=== PATIENT | female | born 1965 | race American Indian/Alaskan Native ===

== ENCOUNTER 2016-10-12 12:03 | Inpatient (IN) | payer OTHER ==
[2016-10-12 13:13] LABS: Basophils % (Auto) 0.3 % (0.0-1.8); Eosinophils % (Auto) 4.6 % (0.0-4.3); Hematocrit 41.9 % (30.3-42.9); Hemoglobin 13.6 gm/dl (10.1-14.3); Mean Corpuscular HGB Conc 33 % (30-34); Mean Corpuscular Hemoglobin 30 pg (28-32); Mean Corpuscular Volume 93 fl (79-97); Platelet Count 213 K/mm3 (140-440); Red Blood Count 4.49 M/mm3 (3.65-5.03); Red Cell Distribution Width 13.7 % (13.2-15.2); White Blood Count 7.9 K/mm3 (4.5-11.0)
[2016-10-12 13:44] LABS: Anion Gap 18 mmol/L; BUN/Creatinine Ratio 11.42; Blood Urea Nitrogen 8 mg/dL (7-17); Calcium 9.2 mg/dL (8.4-10.2); Carbon Dioxide 26 mmol/L (22-30); Chloride 101.8 mmol/L (98-107); Glucose 98 mg/dL (65-100); Lipase 31 units/L (13-60); Sodium 142 mmol/L (137-145)
[2016-10-12 13:45] LABS: Bilirubin,Urine NEG (Negative); Blood,Urine LG (Negative); Ketones,Urine NEG (Negative); Leukocyte Esterase,Urine TR (Negative); Nitrite,Urine NEG (Negative); Protein,Urine <15 mg/dL mg/dL (Negative); Urobilinogen,Urine < 2.0 mg/dL (<2.0)
[2016-10-12 14:54] LABS: Mucus,Urine FEW /HPF
[2016-10-12] MEDS ORDERED: MORPHINE IV ONE (22:28)
[2016-10-12] MEDS ORDERED: ASPIRIN PO ONE (22:28)
[2016-10-12] MEDS ORDERED: ZOFRAN IV ONE (22:28)
[2016-10-12] MEDS ORDERED: NITRO-BID 2% TP ONE (22:28)
[2016-10-12] MEDS ORDERED: PEPCID IV ONE (22:30)
[2016-10-12] MEDS ORDERED: MORPHINE ONE (22:33)
--- NOTE | 2016-10-12 22:35 | Emergency Department Report ---
HPI - General Chief Complaint: Abdominal Pain Time Seen by Provider: 10/12/16 22:18 - HPI HPI: Room 5 The patient is a 51-year-old female presenting with a chief complaint of chest pain. The patient states for 1 week she has had intermittent substernal chest pain that has been "crushing" in nature. Patient states she feels though she cannot "digest food." The patient states drinking liquids sometimes makes the chest pain worse. Patient does admit to shortness of breath, nausea and diaphoresis with her chest pain. The patient states her chest pain has returned and is currently a 5/10. Patient states she's never had a stress test or cardiac catheterization. Patient has also noticed a rash to her face left ear and left upper extremity over the past 3 days. The patient states the rash is pruritic. The patient states her only new exposure was a facial wash she used 2 weeks ago Location: [see above] Duration: Intermittent times one week Quality: "Crushing" Severity: 5/10 Modifying factors: [see above] Context: [see above] Mode of transportation: [not driving] ED Past Medical Hx - Past Medical History Previous Medical History?: No - Surgical History Past Surgical History?: No Additional Surgical History: , finger amputation, D&C - Family History Family history: no significant - Social History Smoking Status: Current Every Day Smoker (1 pack per day) Substance Use Type: Alcohol (occasional) - Medications Home Medications: Home Medications Medication Instructions Recorded Confirmed Last Taken Type No Known Home Medications [No 10/12/16 10/12/16 Unknown History Reported Home Medications] ED Review of Systems ROS: Stated complaint: CHEST PAIN/RASHEED/SOB/RASH/ Other details as noted in HPI Comment: All other systems reviewed and negative Constitutional: diaphoresis Eyes: denies: eye pain, eye discharge, vision change ENT: denies: ear pain, throat pain Respiratory: shortness of breath Cardiovascular: chest pain Endocrine: no symptoms reported Gastrointestinal: nausea. denies: vomiting Genitourinary: denies: urgency, dysuria, discharge Musculoskeletal: denies: back pain, joint swelling, arthralgia Skin: rash Neurological: denies: headache, weakness, paresthesias Psychiatric: denies: anxiety, depression Hematological/Lymphatic: denies: easy bleeding, easy bruising Physical Exam - Physical Exam Vital Signs: Vital Signs 10/12/16 10/12/16 12:30 20:24 Temperature 98.3 F 98.6 F Pulse Rate 73 18 L Respiratory 18 16 Rate Blood Pressure 105/77 Blood Pressure 130/81 [Left] O2 Sat by Pulse 100 100 Oximetry Physical Exam: GENERAL: The patient is well-developed well-nourished female lying on stretcher not appearing to be in acute distress. [] HEENT: Normocephalic. Atraumatic. Extraocular motions are intact. Patient has moist mucous membranes. Mild erythema encompassing bridge of nose and cheek not necessarily a definitive malar rash but erythematous NECK: Supple. Trachea midline CHEST/LUNGS: Clear to auscultation. There is no respiratory distress noted. HEART/CARDIOVASCULAR: Regular. There is no tachycardia. There is no gallop rub or murmur. ABDOMEN: Abdomen is soft, nontender. Patient has normal bowel sounds. There is no abdominal distention. SKIN: There is erythematous rash of the face encompassing the bridge of the nose and the maxillary regions. She has mild erythema of the left ear. There is a small (2 cm) region of erythema to the left upper extremity. There is no edema. There is no diaphoresis. NEURO: The patient is awake, alert, and oriented. The patient is cooperative. The patient has normal speech MUSCULOSKELETAL: There is no evidence of acute injury. ED Course Vital Signs 10/12/16 10/12/16 12:30 20:24 Temperature 98.3 F 98.6 F Pulse Rate 73 18 L Respiratory 18 16 Rate Blood Pressure 105/77 Blood Pressure 130/81 [Left] O2 Sat by Pulse 100 100 Oximetry ED Medical Decision Making - Lab Data Result diagrams: 10/12/16 12:43 10/12/16 12:43 Laboratory Tests 10/12/16 10/12/16 10/12/16 12:43 12:43 13:00 WBC 7.9 RBC 4.49 Hgb 13.6 Hct 41.9 MCV 93 MCH 30 MCHC 33 RDW 13.7 Plt Count 213 Lymph % (Auto) 33.2 [place] % (Auto) 7.6 H Eos % (Auto) 4.6 H Baso % (Auto) 0.3 Lymph # 2.6 [place] # 0.6 Eos # 0.4 Baso # 0.0 Seg Neutrophils % 54.3 Seg Neutrophils # 4.3 Sodium 142 Potassium 4.0 Chloride 101.8 Carbon Dioxide 26 Anion Gap 18 BUN 8 Creatinine 0.7 Estimated GFR > 60 BUN/Creatinine Ratio 11.42 Glucose 98 Calcium 9.2 Troponin T < 0.010 Lipase 31 Urine Color Yellow Urine Turbidity Clear Urine pH 6.0 Ur Specific [place] 1.015 Urine Protein <15 mg/dl Urine Glucose (UA) Neg Urine Ketones Neg Urine Blood Lg Urine Nitrite Neg Urine Bilirubin Neg Urine Urobilinogen < 2.0 Ur Leukocyte Esterase Tr Urine WBC (Auto) 1.0 Urine RBC (Auto) 94.0 U Epithel Cells (Auto) 2.0 Urine Mucus Few Urine Yeast (Budding) Few 10/12/16 10/12/16 15:27 19:15 WBC RBC Hgb Hct MCV MCH MCHC RDW Plt Count Lymph % (Auto) [place] % (Auto) Eos % (Auto) Baso % (Auto) Lymph # [place] # Eos # Baso # Seg Neutrophils % Seg Neutrophils # Sodium Potassium Chloride Carbon Dioxide Anion Gap BUN Creatinine Estimated GFR BUN/Creatinine Ratio Glucose Calcium Troponin T < 0.010 < 0.010 Lipase Urine Color Urine Turbidity Urine pH Ur Specific [place] Urine Protein Urine Glucose (UA) Urine Ketones Urine Blood Urine Nitrite Urine Bilirubin Urine Urobilinogen Ur Leukocyte Esterase Urine WBC (Auto) Urine RBC (Auto) U Epithel Cells (Auto) Urine Mucus Urine Yeast (Budding) - EKG Data -: EKG Interpreted by Me EKG shows normal: sinus rhythm Rate: normal - EKG Data When compared to previous EKG there are: previous EKG unavailable Interpretation: other (no ischemic changes seen) - Radiology Data Radiology results: image reviewed (chest x-ray) interpreted by me: Chest x-ray-no focal infiltrates, no pneumothorax - Differential Diagnosis ACS, lupus, pericarditis, GERD, esophageal spasm Critical care attestation.: If time is entered above; I have spent that time in minutes in the direct care of this critically ill patient, excluding procedure time. ED Disposition Clinical Impression: Chest pain, Facial rash Disposition: OP ADMITTED IP TO THIS HOSP Is pt being admited?: Yes Does the pt Need Aspirin: Yes Condition: Fair Instructions: Chest Pain (ED), Abdominal Pain (ED) Referrals: PRIMARY CARE,MD [Primary Care Provider] - 3-5 Days Time of Disposition: 22:39 (hospitalist paged)
[2016-10-12] MEDS ORDERED: MORPHINE IV PRN (23:40)
[2016-10-12] MEDS ORDERED: SODIUM CHLORIDE FLUSH SYRINGE 10 ML IV PRN (23:40)
[2016-10-12] MEDS ORDERED: TYLENOL PO PRN (23:40)
[2016-10-12] MEDS ORDERED: MILK OF MAGNESIA PO PRN (23:40)
[2016-10-12] MEDS ORDERED: ZOFRAN IV PRN (23:40)
[2016-10-12] MEDS ORDERED: DULCOLAX PR PRN (23:40)
--- NOTE | 2016-10-12 23:44 | History and Physical Report ---
History of Present Illness History of present illness: SEE PREVIUS H&P DICTATION Medications and Allergies Allergies Allergy/AdvReac Type Severity Reaction Status Date / Time No Known Allergies Allergy Verified 10/12/16 22:39 Home Medications Medication Instructions Recorded Confirmed Last Taken Type Famotidine [Pepcid] 20 mg PO BID #60 tablet 10/13/16 Unknown Rx Exam - Constitutional Vitals: Temp Pulse Resp BP Pulse Ox 98.6 F 66 15 111/62 98 10/12/16 20:24 10/12/16 22:51 10/12/16 22:20 10/12/16 22:51 10/12/16 22:20 Results - Labs CBC & Chem 7: 10/13/16 07:10 10/13/16 04:00 Labs: Abnormal lab results 10/12/16 Range/Units 12:43 [place] % (Auto) 7.6 H (0.0-7.3) % Eos % (Auto) 4.6 H (0.0-4.3) %
--- NOTE | 2016-10-13 00:47 | Admit Criteria Form ---
Admission Criteria Documentation: CARDIOLOGY GRG Clinical Indications for Admission to Inpatient Care ( Place 'X' for any and all applicable criteria): Hospital admission is needed for appropriate care of the patient because of ANY ONE of the following (1): [ ] I. Hemodynamic instability as indicated by ALL of the following (1)(2)(3) (4)(5) [ ]a) Vital signs or other findings not as expected for chronic patient condition or baseline [ ]b) Instability indicated by ANY ONE of the following: [ ]i) Hypotension [ ]ii) Symptomatic Tachycardia unresponsive to treatment ( e.g., analgesia, fluids, sedation as indicated) [ ]iii) Inadequate perfusion indicated by ANY ONE of the following: [ ] 1) Lactic acidosis (> 2 mmol/L) [ ] 2) New abnormal capillary refill (> 3 seconds) [ ] 3) Reduced urine output [ ] 4) New altered mental status [ ]iv) Orthostatic vital sign changes unresponsive to treatment (e.g., fluids) [ ]v) IV inotropic or vasopressor medication required to maintain adequate blood pressure or perfusion [ ] II. Severe heart failure as indicated by ANY ONE of the following(17)(18) [ ]a) Respiratory distress [ ]b) Hypotension [ ]c) Anasarca (refractory to outpatient therapy) [ ]d) Cardiac arrhythmias of immediate concern [ ]e) Myocardial ischemia [ ] III. Cardiac arrhythmias or findings of immediate concern indicated by ANY ONE of the following (19)(20): [ ] a) Heart rhythms that are inherently dangerous or unstable indicated by ANY ONE of the following (21)(22)(23): [ ] i) Resuscitated ventricular fibrillation or cardiac arrest [ ] ii) Ventricular escape rhythm [ ] iii) Sustained ventricular tachycardia (30 seconds or more of ventricular rhythm at greater than 100 beats per minute) [ ] iv) Nonsustained ventricular tachycardia and ANY ONE of the following: [ ] 1) Suspected cardiac ischemia as cause or consequence of ventricular tachycardia [ ] 2) In setting of acute myocarditis [ ] b) Unstable cardiac conduction defects indicated by ANY ONE of the following(23)(24)(25) [ ] i) Type II second-degree atrioventricular block [ ]ii) Third-degree atrioventricular block [ ]iii) New-onset left bundle branch block with suspected myocardial ischemia [ ]c) Any heart rhythm and ANY ONE of the following (21)(22)(26)(27) (28) [ ] i) Continuous long-term ECG monitoring needed (e.g., initiation of drug requiring monitoring for more than 24 hours) [ ] ii) Patient has automatic implanted cardioverter defibrillator that is repeatedly firing, malfunctioning, or in need of immediate adjustment of settings beyond the scope of ambulatory or observation care [ ]d) Heart rhythms of concern due to ANY ONE of the following: [ ] i) Hypotension [ ] ii) Respiratory distress [ ] iii) Association with other significant symptoms (e.g., bradycardia with syncope or ongoing dizziness, supraventricular tachycardia with chest pain (14)(15)(17) [ ] IV. Monitoring for cardiac contusion beyond the scope of observation care needed [A](30)(31)(32) [ ] V. Surgical or device complication (e.g., valve replacement complication , pacemaker dysfunction) (35)(41)(44)(45)(46) [ ] . Inpatient palliative care needed. [B](49) Also use Inpatient Palliative Care Criteria [ ] VII. Nonbacterial thrombotic (marantic) endocarditis (36)(43)(47)(48) [X] VIII. Cardiology condition, symptom, or finding for which emergency and observation care has failed or are not considered appropriate. [ ] IX. Acute valvular disease requiring inpatient as indicated by ANY ONE of the following (41) [ ]a) Acute valvular regurgitation (42) [ ]b) Noninfectious valvulitis (43) [ ]c) Obstructive valve thrombosis [ ]d) Paravalvular leak [ ]e) Other significant valvular disorder remaining after emergency or observation level of care (as appropriate) [ ]X. Pericardial disease requiring inpatient treatment as indicated by ANY ONE of the following (33)(34)(35)(36)(37) [ ]a) Suspected tamponade (38)(39)(40) [ ]b) Hemopericardium [ ]c) Other significant pericardial disorder remaining after emergency or observation level of care (as appropriate) [ ] XI. Cardiac ischemia beyond scope of emergency and observation care. [ ] XII. Hypertension requiring inpatient treatment as indicated by ANY ONE of the following (6)(7)(8) [ ]a) SBP greater than 220 mm Hg or DBP greater than 120 mmHg despite treatment [ ]b) SBP greater than 140 mm Hg or DBP greater than 100 mm Hg with evidence of acute end organ damage as indicated by ANY ONE of the following [ ] i) Altered mental status [ ] ii) Acute renal failure as indicated by new onset of ANY ONE of the following (9)(10)(11)(12)(13) [ ]1) 3-fold rise in serum creatinine from baseline [ ]2) Serum creatinine greater than 4 mg/dL ( 354 micromoles/L) with acute rise greater than 0.5 mg/dL (44.2 micromoles/L) [ ]3) Reduction of more than 75% in estimated glomerular filtration rate from baseline [ ]4) Estimated glomerular filtration rate less than 35 mL/min/1.73m2 (0.59 mL/sec/1.73m2) in child up to 18 years of age [ ]5) Cessation of urine output indicated by ALL of the following [ ]A. Adequate volume status [ ]B. Inadequate urine output as indicated by ANY ONE of the following [ ]a. Urine output less than 0.3 mL/kg/hr for 24 hours [ ]b. Anuria (urine output less than 0.1 mL/kg/hr) for 12 hours [ ] iii) Aortic dissection [ ] iv) Myocardial Ischemia [ ] v) Left ventricular heart failure [ ]vi) Retinal Hemorrhage [ ]vii) Other significant finding [ ]c) Hypertension in child requiring inpatient treatment as indicated by ALL of the following(14)(15)(16) [ ] i) Outpatient treatment not effective, not available, or not appropriate [ ]ii) SBP or DBP greater than 95th percentile for age [ ]iii) Evidence of acute end organ damage as indicated by ANY ONE of the following [ ]1) Altered mental status [ ]2) Acute renal failure as indicated by new onset of ANY ONE of the following(9)(10)(11)(12)(13) [ ]A. 3-fold rise in serum creatinine from baseline [ ]B. Serum creatinine greater than 4 mg/dL (354 micromoles/L) with acute rise greater than 0.5 mg/dL (44.2 micromoles/L) [ ]C. Reduction of more than 75% in estimated glomerular filtration rate from baseline [ ]D. Estimated glomerular filtration rate less than 35 mL/min/1.73m2 (0.59 mL/sec/1.73m2) in child up to 18 years of age [ ]E. Cessation of urine output indicated by ALL of the following [ ]a. Adequate volume status [ ]b. Inadequate urine output as indicated by ANY ONE of the following [ ]i) Urine output less than 0.3 mL/kg/hr for 24 hours [ ]ii) Anuria ( urine output less than 0.1 mL/kg/hr) for 12 hours [ ]3) Severe headache [ ]4) Visual disturbance [ ]5) Retinal hemorrhage [ ]6) Other significant finding [ ]XIII. Complications of transplanted heart indicated by ANY ONE of the following(61): [ ]a) Acute graft rejection requiring inpatient management (eg, intravenous immunosuppression)(62)(63) [ ]b) Acute graft heart failure indicated by ANY ONE of the following(64): [ ]i) Hemodynamic instability [ ]ii) Cardiac arrhythmias of immediate concern [ ]iii) Pulmonary edema that is very severe (eg, mechanical ventilation needed, imminent or likely, need for 100% oxygen to keep oxygen saturation above 90%) [ ]iv) Pulmonary edema that is persistent as indicated by ALL of the following: [ ]1) New need for oxygen therapy to keep oxygen saturation above 90% (or increased FiO2 need from baseline) [ ]2) Has not improved sufficiently with emergency department or observation care IV diuretics or other heart failure treatments[E] [ ]v) Altered mental status that is severe or persistent [ ]vi) Increased creatinine (new on laboratory test) with reduction of more than 50% in estimated glomerular filtration rate from baseline [ ]vii) Progressively (ongoing) rising creatinine (known from past laboratory test) with reduction of more than 25% in estimated glomerular filtration rate from baseline [ ]viii) Acute renal failure [ ]ix) Acute peripheral ischemia (eg, examination shows pulseless, cool, mottled, or cyanotic extremity) [ ]x) Pulmonary artery catheter monitoring needed [ ]xi) Other sign or symptom of heart failure requiring inpatient treatment (ie, too severe or not responsive to outpatient and observation care treatment) [ ]c) Infection requiring inpatient management (eg, Hemodynamic instability, need for intravenous antimicrobial treatment)(66)(67)(68)(69)(70) [ ]d) Cardiac allograft vasculopathy requiring inpatient management ( eg evidence of cardiac ischemia)(71) [ ]e) Other complication of transplanted heart (eg, stroke, severe pulmonary hypertension, severe valvular dysfunction) requiring inpatient management(72) The original [facility] content created by [facility] has been revised. The portions of the content which have been revised are identified through the use of italic text or in bold, and [facility] has neither reviewed nor approved the modified material. All other unmodified content is copyright [facility]. Please see references footnoted in the original [facility] edition 2016 Admission Criteria Met: Yes
[2016-10-13 07:55] LABS: Creatine Kinase MB 2.4 ng/mL (0.0-4.0)
[2016-10-13 07:58] LABS: Anion Gap 16 mmol/L; Blood Urea Nitrogen 8 mg/dL (7-17); Carbon Dioxide 27 mmol/L (22-30); Chloride 102.7 mmol/L (98-107); Potassium 4.3 mmol/L (3.6-5.0); Sodium 141 mmol/L (137-145)
[2016-10-13 07:59] LABS: Calcium 8.9 mg/dL (8.4-10.2); Glucose 83 mg/dL (65-100)
--- NOTE | 2016-10-13 09:28 | Discharge Summary ---
Providers - Providers Date of Admission: 10/12/16 23:40 Date of discharge: 10/14/16 Attending physician: ISSAC FLORENCE MD 10/13/16 09:22 Consult to Physician [CONS] Routine Reason For Exam: Odynophagia Consulting Provider: PRITESH MOE Primary care physician: P[employer]EARCH PSYCHOLOGIST Hospitalization Condition: Fair Disposition: STILL A PATIENT Exam - Constitutional Vitals: Temp Pulse Resp BP Pulse Ox 97.4 F L 78 18 113/67 100 10/13/16 08:45 10/13/16 08:45 10/13/16 08:45 10/13/16 08:45 10/13/16 08:45 Plan Activity: advance as tolerated, fall precautions Diet: low fat Special Instructions: smoking cessation, other (must quit etoh) Follow up with: PRIMARY CARE, [Primary Care Provider] - 3-5 Days PRITESH MOE MD [Staff Physician] - 7 Days Prescriptions: Famotidine [Pepcid] 20 mg PO BID #60 tablet
--- NOTE | 2016-10-13 10:00 | History and Physical Report ---
CHIEF COMPLAINT: Chest pain. HISTORY OF PRESENT ILLNESS: This is a 51-year-old woman with no medical problems, comes to the Emergency Room with complaints of chest pain located in the epigastric area x 1 week. She describes it as a squeezing pain, intermittent in nature, lasting for 4 minutes, intensity 7/10, no radiation, and she cannot identify relieving factors. She states that eating and drinking makes her symptoms worse. She admits to nausea, shortness of breath, diaphoresis. No palpitations. REVIEW OF SYSTEMS: No fever or chills. No headache, no blurred vision. No cough. No abdominal pain. No hematochezia. No dysuria or frequency. No pruritus. No anxiety, depression. No focal weakness, paresthesia. Other review of system is negative. PAST SURGICAL HISTORY: , amputation of finger. SOCIAL HISTORY: Smokes a pack a day, admits to drinking 3 bottles of wine a week plus 6 pack of beer a week, no drug use. PHYSICAL EXAMINATION: VITAL SIGNS: Reviewed. HEENT: Normocephalic, atraumatic. Pupils equal, round, reactive to light. Extraocular movements intact. No scleral icterus. Mucous membranes moist, no exudate or erythema. NECK: No JVD. Neck is supple. No carotid bruit. No thyromegaly or nodule. HEART: S1, S2, regular rate and rhythm. CHEST: Lungs clear to auscultation bilateral. Breathing comfortable. ABDOMEN: Positive bowel sounds, nontender, nondistended, no organomegaly. EXTREMITIES: No edema, cyanosis or clubbing. SKIN: No rash. Warm and dry. NEUROLOGICAL: Alert and oriented x 3. Cranial nerves 2-12 intact. Speech is fluent. LABORATORY DATA: As follows: labs, EKG was reviewed. Chest x-ray is normal. ASSESSMENT AND PLAN: 1. Chest pain, rule out acute coronary syndrome. 2. Admit to Medicine. 3. Check cardiac enzymes, lipid profile and obtain a stress test. 4. Start aspirin, IV morphine. 5. Deep venous thrombosis prophylaxis. JOB# [id number] AES/NTS MTDD
--- NOTE | 2016-10-13 10:00 | XRay Report ---
CHEST ONE VIEW INDICATION: Chest pain. COMPARISON: None similar at this institution. FINDINGS: Portable, single, frontal chest radiograph demonstrates normal cardiomediastinal silhouette. Clear lungs. Unremarkable bones. Extrinsic EKG leads. CONCLUSION: No acute disease in the chest. Thank you for the opportunity to participate in this patient's care.
[2016-10-13 10:29] LABS: Basophils % (Auto) 0.2 % (0.0-1.8); Eosinophils % (Auto) 4.1 % (0.0-4.3); Hematocrit 41.2 % (30.3-42.9); Hemoglobin 13.4 gm/dl (10.1-14.3); Mean Corpuscular HGB Conc 33 % (30-34); Mean Corpuscular Hemoglobin 30 pg (28-32); Mean Corpuscular Volume 93 fl (79-97); Platelet Count 200 K/mm3 (140-440); Red Blood Count 4.43 M/mm3 (3.65-5.03); Red Cell Distribution Width 13.7 % (13.2-15.2); White Blood Count 7.1 K/mm3 (4.5-11.0)
[2016-10-13] MEDS: BABY ASPIRIN PO SCH (11:21)
[2016-10-13] MEDS ORDERED: CARAFATE PO SCH (11:30)
--- NOTE | 2016-10-13 11:33 | Gastroenterology Consultation ---
Addendum entered and electronically signed by SUMIT GERMAIN NP 10/13/16 13:33: Will add colonoscopy for tomorrow as well, NPO after MN, clear liquid diet, Prep this PM Original Note: <SUMIT GERMAIN - Last Filed: 10/13/16 11:31> History of Present Illness - Reason for Consult Consult date: 10/13/16 odynophagia Requesting physician: ISSAC FLORENCE - History of Present Illness Ms. Reddy is a 51 y/o female admitted with CP. She states her pain is typically after she eats. She feels as thought food and fluid gets dislodged in her chest and is painful. She has the sensation of choking. This started ~ 1 week ago. No prior GI workup. She reports a 20 lb weight loss over the last 3 months. No abdominal pain. She has noted blood in her stool over the past month. NO family hx of GI disease or cancer. She is S/P stress test with results pending. No fever or chills. BMs are not regular. Past History Past Medical History: No medical history Past Surgical History: , Other (finger amputation) Social history: no significant social history, smoking. denies: alcohol abuse Medications and Allergies Allergies Allergy/AdvReac Type Severity Reaction Status Date / Time No Known Allergies Allergy Verified 10/12/16 22:39 Home Medications Medication Instructions Recorded Confirmed Last Taken Type Famotidine [Pepcid] 20 mg PO BID #60 tablet 10/13/16 Unknown Rx Active Meds: Active Medications Acetaminophen (Tylenol) 650 mg PO Q4H PRN PRN Reason: Pain MILD(1-3)/Fever >100.5/GREGORIO Aspirin (Baby Aspirin) 81 mg PO QDAY [facility] Last Admin: 10/13/16 11:21 Dose: Not Given Bisacodyl (Dulcolax) 10 mg [place] QDAY PRN PRN Reason: Constipation unrelieved by MOM Magnesium Hydroxide (Milk Of Magnesia) 30 ml PO Q4H PRN PRN Reason: Constipation Morphine Sulfate (Morphine) 2 mg IV Q4H PRN PRN Reason: Pain, Moderate (4-6) Ondansetron HCl (Zofran) 4 mg IV Q8H PRN PRN Reason: N/V unrelieved by Reglan Pantoprazole Sodium (Protonix) 20 mg PO QDAY OJ Sodium Chloride (Sodium Chloride Flush Syringe 10 Ml) 10 ml IV PRN PRN PRN Reason: LINE FLUSH Sucralfate (Carafate) 1 gm PO ACHS OJ Review of Systems - Review of Systems All systems: negative Constitutional: weight gain, weakness Gastrointestinal: hematochezia, indigestion Exam - Constitutional Vital Signs: Temp Pulse Resp BP Pulse Ox 97.4 F L 78 18 113/67 100 10/13/16 08:45 10/13/16 08:45 10/13/16 08:45 10/13/16 08:45 10/13/16 08:45 General appearance: no acute distress - EENT Eyes: EOM intact ENT: hearing intact - Neck Neck: supple - Respiratory Respiratory: bilateral: CTA - Cardiovascular Rhythm: regular Heart Sounds: Present: S1 & S2 Extremities: Full ROM - Gastrointestinal General gastrointestinal: Present: soft, non-tender, non-distended, normal bowel sounds - Integumentary Integumentary: Present: warm, dry - Neurologic Neurological: alert and oriented x3 - Psychiatric Psychiatric: appropriate mood/affect, cooperative - Labs CBC & Chem 7: 10/13/16 07:10 10/13/16 04:00 Lab Results: Laboratory Results - last 24 hr 10/13/16 10/13/16 10/13/16 00:25 04:00 06:40 WBC RBC Hgb Hct MCV MCH MCHC RDW Plt Count Lymph % (Auto) [place] % (Auto) Eos % (Auto) Baso % (Auto) Lymph # [place] # Eos # Baso # Seg Neutrophils % Seg Neutrophils # Sodium 141 Potassium 4.3 Chloride 102.7 Carbon Dioxide 27 Anion Gap 16 BUN 8 Creatinine 0.8 Estimated GFR > 60 BUN/Creatinine Ratio 10.00 Glucose 83 Calcium 8.9 Total Creatine Kinase 144 H CK-MB (CK-2) 2.4 CK-MB (CK-2) Rel Index 1.6 Triglycerides 70 Cholesterol 152 LDL Cholesterol Direct 87 HDL Cholesterol 51 Cholesterol/HDL Ratio 2.98 10/13/16 07:10 WBC 7.1 RBC 4.43 Hgb 13.4 Hct 41.2 MCV 93 MCH 30 MCHC 33 RDW 13.7 Plt Count 200 Lymph % (Auto) 46.2 H [place] % (Auto) 7.5 H Eos % (Auto) 4.1 Baso % (Auto) 0.2 Lymph # 3.3 [place] # 0.5 Eos # 0.3 Baso # 0.0 Seg Neutrophils % 42.0 Seg Neutrophils # 3.0 Sodium Potassium Chloride Carbon Dioxide Anion Gap BUN Creatinine Estimated GFR BUN/Creatinine Ratio Glucose Calcium Total Creatine Kinase CK-MB (CK-2) CK-MB (CK-2) Rel Index Triglycerides Cholesterol LDL Cholesterol Direct HDL Cholesterol Cholesterol/HDL Ratio Assessment and Plan 1. Odynophagia 2 .Dysphagia -Patient will need EGD. She has had crackers and water recently, therefore can not be done today. Will plan for EGD tomorrow if stress test normal ( Troponins are negative) NPO after MN. No blood thinning meds. -Check coags 2. Hematochezia -in the setting of weight loss, concerning ( dysphagia vs other) may need colonoscopy. H/H WNL. Check FOBT. Can pursue colonoscopy as outpatient if needed. -Will follow. <ALEXANDRE GONZALEZ - Last Filed: 10/13/16 14:43> Medications and Allergies Active Meds: Active Medications Acetaminophen (Tylenol) 650 mg PO Q4H PRN PRN Reason: Pain MILD(1-3)/Fever >100.5/GREGORIO Aspirin (Baby Aspirin) 81 mg PO QDAY [facility] Last Admin: 10/13/16 11:21 Dose: Not Given Bisacodyl (Dulcolax) 10 mg [place] QDAY PRN PRN Reason: Constipation unrelieved by MOM Magnesium Hydroxide (Milk Of Magnesia) 30 ml PO Q4H PRN PRN Reason: Constipation Morphine Sulfate (Morphine) 2 mg IV Q4H PRN PRN Reason: Pain, Moderate (4-6) Ondansetron HCl (Zofran) 4 mg IV Q8H PRN PRN Reason: N/V unrelieved by Reglan Pantoprazole Sodium (Protonix) 20 mg PO QDAY [facility] Last Admin: 10/13/16 11:47 Dose: 20 mg Polyethylene Glycol/Electrolytes (Golytely) 4,000 ml PO ONCE ONE Stop: 10/13/16 17:01 Sodium Chloride (Sodium Chloride Flush Syringe 10 Ml) 10 ml IV PRN PRN PRN Reason: LINE FLUSH Sucralfate (Carafate) 1 gm PO [facility] Last Admin: 10/13/16 11:47 Dose: 1 gm Exam - Constitutional Vital Signs: Temp Pulse Resp BP Pulse Ox 98.1 F 58 L 18 126/64 95 10/13/16 13:04 10/13/16 13:04 10/13/16 13:04 10/13/16 13:04 10/13/16 13:59 - Labs CBC & Chem 7: 10/13/16 07:10 10/13/16 04:00 Lab Results: Laboratory Results - last 24 hr 10/13/16 10/13/16 10/13/16 00:25 04:00 06:40 WBC RBC Hgb Hct MCV MCH MCHC RDW Plt Count Lymph % (Auto) [place] % (Auto) Eos % (Auto) Baso % (Auto) Lymph # [place] # Eos # Baso # Seg Neutrophils % Seg Neutrophils # Sodium 141 Potassium 4.3 Chloride 102.7 Carbon Dioxide 27 Anion Gap 16 BUN 8 Creatinine 0.8 Estimated GFR > 60 BUN/Creatinine Ratio 10.00 Glucose 83 Calcium 8.9 Total Creatine Kinase 144 H CK-MB (CK-2) 2.4 CK-MB (CK-2) Rel Index 1.6 Troponin T Triglycerides 70 Cholesterol 152 LDL Cholesterol Direct 87 HDL Cholesterol 51 Cholesterol/HDL Ratio 2.98 10/13/16 10/13/16 07:10 07:18 WBC 7.1 RBC 4.43 Hgb 13.4 Hct 41.2 MCV 93 MCH 30 MCHC 33 RDW 13.7 Plt Count 200 Lymph % (Auto) 46.2 H [place] % (Auto) 7.5 H Eos % (Auto) 4.1 Baso % (Auto) 0.2 Lymph # 3.3 [place] # 0.5 Eos # 0.3 Baso # 0.0 Seg Neutrophils % 42.0 Seg Neutrophils # 3.0 Sodium Potassium Chloride Carbon Dioxide Anion Gap BUN Creatinine Estimated GFR BUN/Creatinine Ratio Glucose Calcium Total Creatine Kinase CK-MB (CK-2) CK-MB (CK-2) Rel Index Troponin T < 0.010 Triglycerides Cholesterol LDL Cholesterol Direct HDL Cholesterol Cholesterol/HDL Ratio Assessment and Plan Patient seen and examined. Agree with note by Terrie Germain. Pt presenting with chest pain, s/p stress test (awaiting results). C/o odynophagia + dysphagia x 1 week. ~20 lb weight loss in last several months. Reports scant hematochezia x 1 month. Will plan for EGD/colonoscopy tomorrow.
[2016-10-13] MEDS: PROTONIX PO SCH (11:47)
[2016-10-13 14:43] LABS: INR 1.16 (0.87-1.13)
--- NOTE | 2016-10-13 15:00 | Progress Note ---
Assessment and Plan Assessment and plan: Patient is a 51-year-old female with history of tobacco or alcohol abuse and no other significant past medical history percent of the hospital with complaint of chest pain pain is worse with food. His substernal area. With sometimes sensation of choking. She reports loss of weight about 20 pounds in the last 3 months. She denies any hematuria or other hematochezia. There is producible and nonradiating component to the chest pain. She denies daily use of alcohol and denies dependency to alcohol. Although is unable to quantify how much she drinks. Denies any prior history of alcohol withdrawal seizure. * Atypical chest pain likely secondary to GERD * ODYNOPHAGIA with dysphagia concerning for severe GERD * Tobacco abuse * Alcohol abuse Plan * Continue with stress test was planned for today. * We'll consult GI as I feel this is more of a GERD rather than cardiac in nature. Need to rule out achalasia as patient reports food and fluids getting stuck in her esophageal area. * Start patient on PPI * Provided extensive counseling for about 15 minutes to the patient the need to quit tobacco and alcohol abuse. * Monitor for any withdrawal symptoms * DVT GI prophylaxis * Plan of care discussed with the patient if endoscopy is unremarkable we'll plan on discharge tomorrow History Interval history: Patient seen and examined, complains of substernal pain, worse with food, no associated nausea, vomiting or diarrhea. states its been intermittent although worse in the last 24 hours has been ongoing for more than a month. No other adverse events reported by nursing staff. Hospitalist Physical - Physical exam Narrative exam: VITAL SIGNS: Reviewed. GENERAL: The patient appeared well nourished and normally developed. Vital signs as documented. HEAD: No signs of head trauma. EYES: Pupils are equal. Extraocular motions intact. EARS: Hearing grossly intact. MOUTH: Oropharynx is normal. NECK: No adenopathy, no JVD. CHEST: Chest with clear breath sounds bilaterally. No wheezes, rales, or rhonchi. CARDIAC: Regular rate and rhythm. S1 and S2, without murmurs, gallops, or rubs. VASCULAR: No Edema. Peripheral pulses normal and equal in all extremities. ABDOMEN: Soft, without detectable tenderness. No sign of distention. No rebound or guarding, and no masses palpated. Bowel Sounds normal. MUSCULOSKELETAL: Reproducible pain in the sternal area. Good range of motion of all major joints. Extremities without clubbing, cyanosis or edema. NEUROLOGIC EXAM: Alert and oriented x 3. No focal sensory or strength deficits. Speech normal. Follows commands. PSYCHIATRIC: Mood normal. SKIN: No rash or lesions. - Constitutional Vitals: Temp Pulse Resp BP Pulse Ox 98.1 F 58 L 18 126/64 95 10/13/16 13:04 10/13/16 13:04 10/13/16 13:04 10/13/16 13:04 10/13/16 13:59 Results - Labs CBC & Chem 7: 10/13/16 07:10 10/13/16 04:00 Labs: Laboratory Last Values WBC 7.1 K/mm3 (4.5-11.0) 10/13/16 07:10 RBC 4.43 M/mm3 (3.65-5.03) 10/13/16 07:10 Hgb 13.4 gm/dl (10.1-14.3) 10/13/16 07:10 Hct 41.2 % (30.3-42.9) 10/13/16 07:10 MCV 93 fl (79-97) 10/13/16 07:10 MCH 30 pg (28-32) 10/13/16 07:10 MCHC 33 % (30-34) 10/13/16 07:10 RDW 13.7 % (13.2-15.2) 10/13/16 07:10 Plt Count 200 K/mm3 (140-440) 10/13/16 07:10 Lymph % (Auto) 46.2 % (13.4-35.0) H 10/13/16 07:10 [place] % (Auto) 7.5 % (0.0-7.3) H 10/13/16 07:10 Eos % (Auto) 4.1 % (0.0-4.3) 10/13/16 07:10 Baso % (Auto) 0.2 % (0.0-1.8) 10/13/16 07:10 Lymph # 3.3 K/mm3 (1.2-5.4) 10/13/16 07:10 [place] # 0.5 K/mm3 (0.0-0.8) 10/13/16 07:10 Eos # 0.3 K/mm3 (0.0-0.4) 10/13/16 07:10 Baso # 0.0 K/mm3 (0.0-0.1) 10/13/16 07:10 Seg Neutrophils % 42.0 % (40.0-70.0) 10/13/16 07:10 Seg Neutrophils # 3.0 K/mm3 (1.8-7.7) 10/13/16 07:10 PT 14.7 Sec. (12.2-14.9) 10/13/16 13:58 INR 1.16 (0.87-1.13) H 10/13/16 13:58 Sodium 141 mmol/L (137-145) 10/13/16 04:00 Potassium 4.3 mmol/L (3.6-5.0) 10/13/16 04:00 Chloride 102.7 mmol/L (98-107) 10/13/16 04:00 Carbon Dioxide 27 mmol/L (22-30) 10/13/16 04:00 Anion Gap 16 mmol/L 10/13/16 04:00 BUN 8 mg/dL (7-17) 10/13/16 04:00 Creatinine 0.8 mg/dL (0.7-1.2) 10/13/16 04:00 Estimated GFR > 60 ml/min 10/13/16 04:00 BUN/Creatinine Ratio 10.00 % 10/13/16 04:00 Glucose 83 mg/dL (65-100) 10/13/16 04:00 Calcium 8.9 mg/dL (8.4-10.2) 10/13/16 04:00 Total Creatine Kinase 144 units/L (30-135) H 10/13/16 06:40 CK-MB (CK-2) 2.4 ng/mL (0.0-4.0) 10/13/16 06:40 CK-MB (CK-2) Rel Index 1.6 (0-4) 10/13/16 06:40 Troponin T < 0.010 ng/mL (0.00-0.029) 10/13/16 07:18 Triglycerides 70 mg/dL (2-149) 10/13/16 00:25 Cholesterol 152 mg/dL (50-199) 10/13/16 00:25 LDL Cholesterol Direct 87 mg/dL (50-130) 10/13/16 00:25 HDL Cholesterol 51 mg/dL (40-59) 10/13/16 00:25 Cholesterol/HDL Ratio 2.98 % 10/13/16 00:25 Lipase 31 units/L (13-60) 10/12/16 12:43 Urine Color Yellow (Yellow) 10/12/16 13:00 Urine Turbidity Clear (Clear) 10/12/16 13:00 Urine pH 6.0 (5.0-7.0) 10/12/16 13:00 Ur Specific [place] 1.015 (1.003-1.030) 10/12/16 13:00 Urine Protein <15 mg/dl mg/dL (Negative) 10/12/16 13:00 Urine Glucose (UA) Neg mg/dL (Negative) 10/12/16 13:00 Urine Ketones Neg mg/dL (Negative) 10/12/16 13:00 Urine Blood Lg (Negative) 10/12/16 13:00 Urine Nitrite Neg (Negative) 10/12/16 13:00 Urine Bilirubin Neg (Negative) 10/12/16 13:00 Urine Urobilinogen < 2.0 mg/dL (<2.0) 10/12/16 13:00 Ur Leukocyte Esterase Tr (Negative) 10/12/16 13:00 Urine WBC (Auto) 1.0 /HPF (0.0-6.0) 10/12/16 13:00 Urine RBC (Auto) 94.0 /HPF (0.0-6.0) 10/12/16 13:00 U Epithel Cells (Auto) 2.0 /HPF (0-13.0) 10/12/16 13:00 Urine Mucus Few /HPF 10/12/16 13:00 Urine Yeast (Budding) Few /HPF 10/12/16 13:00 - Imaging and Cardiology EKG: image reviewed (normal sinus rhythm) Chest x-ray: image reviewed (no acute pathology noted)
[2016-10-13] MEDS ORDERED: GOLYTELY PO ONE (17:00)
[2016-10-14] MEDS: BABY ASPIRIN PO SCH (10:00)
[2016-10-14] MEDS: PROTONIX PO SCH (10:06)
[2016-10-14] MEDS ORDERED: BENADRYL IV ONE (10:39)
[2016-10-14] MEDS ORDERED: DIPRIVAN 10 MG/ML IV ONE ×2 (15:41)
[2016-10-14] MEDS ORDERED: XYLOCAINE MPF 2% ONE (15:45)
[2016-10-14] MEDS ORDERED: WATER FOR IRRIG STERILE IR ONE (15:55)
[2016-10-14] MEDS ORDERED: WATER FOR IRRIG STERILE ONE (15:55)
[2016-10-14] MEDS ORDERED: NACL 0.9% 1000 ML 1,000 ML IV SCH (16:00)
--- NOTE | 2016-10-14 16:26 | Post Operative Note ---
Pre-op diagnosis: dysphagia, hematochezia, weight loss Post-op diagnosis: other (Schatski ring, gastritis, duodenitis) Findings: Esophagus: non-obstructing schatski ring in the lower third of the esophagus. Dilatation was performed to 18mm with balloon dilator. Moderate sized hiatal hernia. Stomach and duodenum: erythematous mucosa in the stomach and throughout the duodenum. Random gastric bx's obtained Colonoscopy: poor prep, mod-severe diverticulosis (primarily left side of colon) , large internal hemorrhoids. moderate amount of stool throughout the colon. Procedure: EGD with dilatation, and gastric biopsies Colonoscopy Anesthesia: MAC Surgeon: ALEXANDRE GONZALEZ Estimated blood loss: minimal Pathology: list (J) Specimen disposition: to lab (Jar A - random gastric bx's) Condition: stable Disposition: floor
[2016-10-14 16:51] VITALS: BP 143/67
--- NOTE | 2016-10-14 20:07 | Operative Report ---
PROCEDURE: EGD. PREOPERATIVE DIAGNOSES: Dysphagia, weight loss. POSTOPERATIVE DIAGNOSES: Nonobstructing Schatzki's ring, erythematous mucosa in the stomach and duodenum. ANESTHESIA: Monitored anesthesia care. COMPLICATIONS: No immediate complications. ESTIMATED BLOOD LOSS: Minimal. DESCRIPTION OF PROCEDURE: After consent was obtained, the patient was placed in left lateral decubitus position. The upper Fujinon scope was advanced with direct vision through the mouth and advanced to the second portion of duodenum without difficulty. The patient tolerated the procedure fairly well. The views of mucosa were good. FINDINGS: 1. There was a nonobstructing (widely patent) Schatzki's ring in the lower third of the esophagus. Balloon dilatation was performed with 18 mm balloon. There was a moderate sized hiatal hernia. 2. There was erythematous mucosa in the antrum of the stomach. Random biopsies were obtained to evaluate for H. pylori. 3. Erythematous mucosa throughout the visualized portion of the duodenum. IMPRESSION: 1. Schatzki's ring, s/p balloon dilatation. 2. Gastritis. Biopsies were obtained. 3. Duodenitis. RECOMMENDATIONS: 1. PPI before breakfast daily. 2. Avoid NSAID medications. 3. Follow up pathology results. 4. Follow-up in GI clinic in 3-4 weeks [facility]# [id number] SIMIN/ZIGGY WAITE
--- NOTE | 2016-10-14 20:10 | Operative Report ---
NAME OF PROCEDURE: Colonoscopy. PREOPERATIVE DIAGNOSES: Hematochezia, weight loss. POSTOPERATIVE DIAGNOSES: Poor prep, [id number] left-sided diverticulosis, large internal hemorrhoids. ANESTHESIA: Monitored anesthesia care. COMPLICATIONS: No immediate complications. ESTIMATED BLOOD LOSS: None. DESCRIPTION OF PROCEDURE: After consent was obtained, the patient was placed in left lateral decubitus position. The Fujinon colonoscope was advanced with direct vision through the anus and advanced to the cecum without difficulty. The patient tolerated the procedure well. The views of the mucosa were poor. The quality of prep was poor. FINDINGS: 1. Moderate to severe diverticulosis, primarily in the left side of the colon 2. Medium-large sized internal hemorrhoids 3. Poor prep throughout most of the colon with semi-solid stool IMPRESSION: 1. Poor prep throughout the colon. 2. Diverticulosis. 3. Internal hemorrhoids. RECOMMENDATIONS: 1. High fiber diet daily. 2. Hemorrhoidal suppository daily as needed. 3. Will need repeat colonoscopy and within 6 months for screening purposes given poor prep. 4. The patient should follow up in GI clinic in 3 to 4 weeks. JOB# [id number] SIMIN/ZIGGY WAITE
--- NOTE | 2016-10-15 07:38 | Anesthesia Consultation ---
Anesthesia Consult and Med Hx Date of service: 10/14/16 - Airway Anesthetic Teeth Evaluation: Good ROM Head & Neck: Adequate Mental/Hyoid Distance: Adequate Mallampati Class: Class II Intubation Access Assessment: Probably Good - Pulmonary Exam CTA: Yes - Cardiac Exam Cardiac Exam: RRR - Pre-Operative Health Status ASA Pre-Surgery Classification: ASA2 Proposed Anesthetic Plan: MAC - Pre-Anesthesia Comment Pre-Anesthesia Comments: Atypical CP, preliminary negative stress test 10/13/16. - Pulmonary Hx Smoking: Yes (1ppd for long time) Hx Asthma: No COPD: No Hx Pneumonia: No - Cardiovascular System Hx Hypertension: No Hx Heart Attack/AMI: No (atypical CP ) - Central Nervous System Hx Seizures: No CVA: No - Endocrine Hx Renal Disease: No Hx End Stage Renal Disease: No Hx Liver Disease: No Hx Non-Insulin Dependent Diabetes: No - Other Systems Hx Alcohol Use: Yes (3 drinks per week) - Additional Comments Anesthesia Medical History Comments: NAC
== END 2016-10-14 19:35 | disposition home or self-care (01) | DRG 392 ==
LOC: ED 12:03 → 4A 23:40 → 3A 10-13 18:52
PROVIDERS: ADMIT Internal Medicine; ATTEND Internal Medicine
PROC: 0DB68ZX Excision of Stomach, Via Natural or Artificial Opening Endoscopic, Diagnostic (ICD-10-PCS; principal; 2016-10-14)
PROC: 0D758ZZ Dilation of Esophagus, Via Natural or Artificial Opening Endoscopic (ICD-10-PCS; 2016-10-14)
PROC: 0DJD8ZZ Inspection of Lower Intestinal Tract, Via Natural or Artificial Opening Endoscopic (ICD-10-PCS; 2016-10-14)
DX: K29.70 Gastritis, unspecified, without bleeding (principal); K21.9 Gastro-esophageal reflux disease without esophagitis; F17.210 Nicotine dependence, cigarettes, uncomplicated; R13.10 Dysphagia, unspecified; F10.10 Alcohol abuse, uncomplicated; K44.9 Diaphragmatic hernia without obstruction or gangrene; K29.80 Duodenitis without bleeding; R07.9 Chest pain, unspecified
CPT/HCPCS: 36415; 71010; 80048; 80061; 81001; 82550; 82553; 83690; 84484; 85025; 85610; 88305; 88342; 93005; 93010; 93017; 96374; 96375; 99406; C1726; J1200; J2270; J2405; J2704; J7030